=== PATIENT | male | born 1955 | race Caucasian/White ===

== ENCOUNTER 2025-01-25 20:21 | Emergency (ER) | payer MEDICARE ==
[~2025-01-25] VITALS: Ht 182.9 cm; Wt 88.5 kg
[~2025-01-25 20:21] MED LIST: ASPIR 8181 MG PO; ASPIRIN LOW DOS81 MG PO; BACTRIM DS TAB1 EACH PO; CARVEDILOL12.5 MG PO; FISH OIL500 MG PO; HUMALOG100 UNIT/1 SQ; LANTUS100 UNITS/ SQ; LOSARTAN POTASS25 MG PO; LUNESTA1 MG PO; MULT-VITAMIN; MULTIVITAMINS1 EAC7 PO; POTASSIUM GLUC500 GM PO; ULTRAM50 MG PO; Z.0.CARVEDILOL6.25 M PO; Z.0.CINNAMON500 MG PO; Z.0.FISH OIL500 MG PO; Z.0.GLIMEPIRIDE4 MG PO; Z.0.LIPITOR80 MG PO; Z.0.LISINOPRIL5 MG PO; Z.0.PLAVIX75 MG PO; Z.2.METFORMIN HCL500 PO; ZETIA10 MG PO; [UNRECOGNIZED DRUG - OTHER]
[2025-01-25 20:40] VITALS: RESP 17; TEMP 98.1
[2025-01-25 21:05] LABS: BASOPHILS % 0.7 % (0.0-1.0); EOSINOPHILS % 2.8 % (0.0-6.0); LYMPHOCYTES % 27.6 % (18.0-39.1); MONOCYTES % 9.6 % (4.4-11.3); NEUTROPHILS % 58.0 % (38.7-80.0); RED CELL DISTRIBUTION WIDTH 13.2 % (11.7-14.4)
[2025-01-25 21:25] LABS: EST GLOMERULAR FILTRATION RATE 43.0 ML/MIN (>=60)
[2025-01-25 23:15] VITALS: PULSE 60
[2025-01-25 23:27] VITALS: BP 127/70; O2SAT 98
== END 2025-01-25 23:17 | disposition home or self-care (01) ==
LOC: ER 20:44
DX: E11.65 Type 2 diabetes mellitus with hyperglycemia (principal); I10 Essential (primary) hypertension; I50.9 Heart failure, unspecified; I25.10 Atherosclerotic heart disease of native coronary artery without angina pectoris; Z95.5 Presence of coronary angioplasty implant and graft
CPT/HCPCS: 36415; 80053; 85025; 99284